=== PATIENT | female | born 2005 | race Caucasian/White ===

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

== ENCOUNTER 2025-03-05 08:09 | Outpatient (CLI) | payer OTHER, SELFPAY ==
--- NOTE | 2025-03-05 08:15 | CRLHL7_ITS ---
For Patients: As a result of the Century Cures Act, medical imaging exams and procedure reports are released immediately into your electronic medical record. You may view this report before your referring provider. If you have questions, please contact your health care provider. Indication: SLAP Lesion of Right Shld / Pain Comparison: 02/23/2025 Procedure : Informed consent was obtained. The site was marked. Time-out was performed. The skin of the right shoulder was cleansed with ChloraPrep. A sterile drape was placed. 8 cc of 1 percent lidocaine was administered for superficial anesthesia. Subsequently a 22 gauge spinal needle was introduced into the right shoulder joint under intermittent fluoroscopic guidance. Injection of 2 cc nonionic Omnipaque 240 contrast confirmed intra-articular location. Subsequently 11 cc of dilute gadolinium were injected. The needle was removed and hemostasis achieved with direct pressure. A dressing was placed. The patient tolerated the procedure well without immediate complication and was immediately sent to MRI for imaging. Total fluoroscopy time 26 seconds. Impression: Successful fluoroscopically guided right shoulder arthrogram for MRI. Dictated by Cornel Remy MD @ 03/05/2025 9:48:21 AM (Electronically Signed)
--- NOTE | 2025-03-05 09:15 | MR_ITS ---
EXAM: MR ARTHROGRAM of the?RIGHT?SHOULDER CLINICAL INFORMATION: Female, 19 years old, with shoulder pain INDICATION: Evaluate for SLAP tear PRIOR SURGERY: None reported. PLAIN FILMS: Radiographs 02/25/2025 COMPARISONS: No prior MRIs available. TECHNICAL INFORMATION: Exam performed after the injection of gadolinium-based contrast into the glenohumeral joint of the right shoulder, reported separately. Using a 1.5T MR scanner and a localizing surface coil: coronal obliques: PD, PDFS, T1FS sagittal obliques: PD, PDFS axials: PD, PDFS SEDATION: None CONTRAST: No intravenous contrast was administered. FINDINGS: Bones: Proximal humerus: No fracture or marrow edema/pathology. No humeral Hill-Sachs or reverse Hill-Sachs lesion/impaction or contusion. Glenoid: No fracture or marrow edema/pathology. No osseous Bankart lesion. Rotator cuff and muscles/tendons: Supraspinatus: No tendinopathy, tear or atrophy. Infraspinatus: No tendinopathy, tear or atrophy. Teres minor: No tendinopathy, tear or atrophy. Subscapularis: No tendinopathy, tear or atrophy. Deltoid: No strain or atrophy. Coracoacromial arch: Acromion morphology: The acromion has type I morphology. No discrete subacromial osseous spur or os acromiale. Acromiohumeral space: The acromiohumeral space is within normal limits. Coracohumeral space: The coracohumeral space is within normal limits. Acromioclavicular joint: Joint: No acute injury, arthropathy, or inferior hypertrophy. Ligaments: Coracoclavicular ligaments are intact. Bursae: Subacromial-subdeltoid: No convincing subacromial bursal thickening/bursitis. Subcoracoid: No convincing subcoracoid bursal thickening/bursitis. Biceps tendon: The long head of the biceps tendon is present within the bicipital groove. The intra-articular and extra-articular segments are intact without tendinosis, tenosynovitis, or displacement Glenohumeral joint: Contrast: Gadolinium-based contrast distends the glenohumeral joint, as expected, and fails to extend into the subacromial-subdeltoid bursa. Articular cartilage: Humeral head: No osteochondral abnormalities. Glenoid: No osteochondral abnormalities. Loose bodies: No discrete intra-articular body within the joint. Labrum:?No discrete SLAP tear. . Deformity and tearing throughout the posterosuperior and posterior labrum over a length of approximately 1.6 cm (axial series 4 images 12-15). No paralabral ganglion cyst is identified. Inferior glenohumeral ligament/axillary pouch:?Intact. The axillary pouch is normal in thickness and signal. No evidence of adhesive capsulitis or capsular injury. IMPRESSION: 1. Tearing along the posterosuperior and posterior labrum measuring approximately 1.6 cm in length. 2. No rotator cuff tendinopathy or tear. 3. No tendinopathy, tear, or displacement of the long head of the biceps tendon. 4. No osteochondral defect. KME Electronically signed on 03/05/2025 5:04:00 PM by Amber Smith M.D.
== END 2025-03-05 08:10 | disposition home or self-care (01) ==
LOC: RAD 08:10
PROVIDERS: PCP Family Medicine; Visit Provider Orthopaedic Surgery Sports Medicine
DX: M25.511 Pain in right shoulder (principal); S43.431A Superior glenoid labrum lesion of right shoulder, initial encounter
CPT/HCPCS: 23350; 73222; 77002; A9575